=== PATIENT | female | born 1975 | race Caucasian/White ===

== ENCOUNTER 2024-08-22 11:05 | Outpatient (OUT) | payer OTHER, SELFPAY ==
--- NOTE | 2024-08-22 11:09 | MM_ITS ---
Patient Name: PHU MCQUEEN MR#: [id number] : 1975 Exam Date: 08/22/2024 Ordering Doctor: REPLACED BY [facility] REPORT PROCEDURE: MM TOMOSYNTHESIS SCREENING BI COMPARISON: MM TOMOSYNTHESIS SCREENING BI, 09/06/2022. INDICATIONS: Screening Calculator Name NCI Breast Cancer Risk Assessment Tool 5 Year Breast Cancer Risk 1.60% Lifetime Breast Cancer Risk 16.90% Personal Breast Cancer No Personal Ovarian Cancer No Treatments None Family Cancers Grandfather-maternal with breast cancer at age ~60; Mother with breast cancer at age ~60; Aunt-maternal with breast cancer at age ~55; Aunt-maternal with breast cancer at age ~55; Grandfather-paternal with lung cancer at age ~65; Grandmother-paternal with lung cancer at age ~65. LOCATION: [facility] BREAST COMPOSITION: The breasts are heterogeneously dense,which may obscure small masses. FINDINGS: DIAGNOSTIC CATEGORY 2--BENIGN FINDING. NO CHANGE FROM COMPARISON. Scattered benign-appearing nodules are present. Scattered benign-appearing calcifications are present. Scattered benign-appearing lymph nodes are present. RIGHT BREAST: No significant suspicious finding. LEFT BREAST: No significant suspicious finding. RECOMMENDATIONS: ROUTINE MAMMOGRAM AND CLINICAL EVALUATION IN 12 MONTHS. PLEASE NOTE: A NORMAL MAMMOGRAM DOES NOT EXCLUDE THE POSSIBILITY OF BREAST CANCER. A CLINICALLY SUSPICIOUS PALPABLE LUMP SHOULD BE BIOPSIED. Dictated by: Luisito Maharaj MD on 08/22/2024 at 13:59 Approved by: Luisito Maharaj MD on 08/22/2024 at 14:00
== END 2024-08-22 11:06 | disposition home or self-care (01) ==
LOC: MAMMO 11:05
DX: Z12.31 Encounter for screening mammogram for malignant neoplasm of breast (principal); Z80.3 Family history of malignant neoplasm of breast; Z80.1 Family history of malignant neoplasm of trachea, bronchus and lung
CPT/HCPCS: 77063; 77067